=== PATIENT | female | born 1960 | race Caucasian/White ===

== ENCOUNTER 2020-08-11 10:25 | Inpatient (IN) | payer BC ==
[2020-08-05 16:39] LABS: BASOPHILS % (AUTO) 0.7 % (0-1); EOSINOPHILS # (AUTO) 0.4 X10'3 (0-0.9); EOSINOPHILS % (AUTO) 6.9 % (0-6); LYMPHOCYTES # (AUTO) 1.7 X10'3 (1.1-4.8); LYMPHOCYTES % (AUTO) 30.2 % (21-51); MEAN CORPUSCULAR HEMOGLOBIN 30.2 PG (27.0-31.0); MEAN CORPUSCULAR HGB CONC 32.8 g/dL (33.0-36.5); MEAN CORPUSCULAR VOLUME 92.3 FL (78-98); MEAN PLATELET VOLUME 8.4 FL (7.4-10.4); MONOCYTES # (AUTO) 0.6 X10'3 (0-0.9); MONOCYTES % (AUTO) 9.8 % (2-12); NEUTROPHILS % (AUTO) 52.4 % (42-75); PRE OP HEMATOCRIT 43.1 % (35.0-45.0); PRE OP HEMOGLOBIN 14.1 g/dL (12.0-16.0); PRE OP PLATELET COUNT 321 X10'3 (140-440); RED BLOOD COUNT 4.67 X10'6 (4.20-5.60); RED CELL DISTRIBUTION WIDTH 13.9 % (11.5-14.5)
[2020-08-05 16:52] LABS: CHLORIDE 106 MMOL/L (99-107); PRE OP GLUCOSE 91 MG/DL (70-104); PRE OP POTASSIUM 4.2 MMOL/L (3.4-5.1); PRE OP SODIUM 144 MMOL/L (135-145)
[2020-08-05 16:53] LABS: ALBUMIN 4.2 G/DL (3.4-5.0); ALBUMIN/GLOBULIN RATIO 1.4 (1.1-1.5); ALKALINE PHOSPHATASE 89 IU/L (46-116); BLOOD UREA NITROGEN 16 MG/DL (7-18); BUN/CREATININE RATIO 22.9 (6.6-38.0); PRE OP ALT 32 U/L (30-65); PRE OP ANION GAP 9 (8-16); PRE OP AST 23 U/L (10-37); PRE OP BILIRUB, TOTAL 0.5 MG/DL (0.0-1.0); TOTAL CARBON DIOXIDE 29.4 MMOL/L (24-32); TOTAL PROTEIN 7.1 G/DL (6.4-8.2); eGFR 86 ML/MIN
[~2020-08-11] VITALS: Ht 149.9 cm; Wt 86.2 kg
[2020-08-11] VITALS (15 sets, daily range): BP systolic 124–156; BP diastolic 54–88
[~2020-08-11 10:25] MED LIST: MULT-1085 PO; NAPR-996 PO; cefazolin/dext.iso 2gm/100ml IV ONE; famotidine 20mg tablet PO ONE; ringers solution, lacted 1,000 ML IV SCH; tranexamic acid 1gm/0.7% sal. 100 ML IV ONE; vancomycin 1,500 MG in NS 300ml IV soln IV ONE
[2020-08-11] MEDS ORDERED: ACET-75 PO (10:59)
[2020-08-11] MEDS ORDERED: proCHLORperazine 10 MG/2 ml inj IV PRN (12:55)
[2020-08-11] MEDS ORDERED: morphine 4 MG/ML inj SYRINge IV PRN (12:55)
[2020-08-11] MEDS ORDERED: ondansetron/PF 4mg/2ml inj IV PRN ×2 (12:55→18:55)
[2020-08-11] MEDS ORDERED: morphine 2 MG/ML inj. syringe IV PRN (12:55)
[2020-08-11] MEDS ORDERED: ringers solution, lacted 1,000 ML IV SCH (12:55)
[2020-08-11] MEDS ORDERED: meperidine/PF 25mg/ml syringe IV PRN ×3 (12:55)
[2020-08-11] MEDS ORDERED: ketorolac trometh. 30mg/ml inj. ONE (13:47)
[2020-08-11] MEDS ORDERED: ROPIVAcaine 0.5% (5mg/ml) 30ml vial ONE ×2 (13:48→15:49)
[2020-08-11] MEDS ORDERED: MIDAZolam 1mg/ml 10ml vial ONE (15:47)
[2020-08-11] MEDS ORDERED: fentaNYL/PF 50MCG/1 ML 2ML syringe ONE (15:47)
[2020-08-11] MEDS ORDERED: propofol inj 20 ML IV ONE (16:11)
[2020-08-11] MEDS ORDERED: mineral oil 10ml sterile, topical TP ONE (16:43)
[2020-08-11] MEDS ORDERED: ROPIVAcaine 0.2%/PF PUMP/bolus 545 ML ADDCANAL SCH (17:50)
[2020-08-11] MEDS ORDERED: ROPIVAcaine 0.2% (10 MG/5 ML) BOLUS INJECTION ADDCANAL PRN (17:50)
--- NOTE | 2020-08-11 18:32 | NUR ---
Received from OR via , accompanied by Anesthesiologist DR GLEZ and report given by Anesthesiolgist.AWAKE AND BHAVANA PAIN. VITALS STABLE. DRESSING DI. SENSATION AT THE FEET. CLEMENTS WITH CLEAR URINE.
[2020-08-11] MEDS ORDERED: bisacodyl 10mg suppository rectal RC PRN (18:55)
[2020-08-11] MEDS ORDERED: acetaminophen 325mg tablet PO PRN (18:55)
[2020-08-11] MEDS ORDERED: oxyCODONE IR 5mg (immed. release) tablet PO PRN (18:55)
[2020-08-11] MEDS ORDERED: diphenhydrAMINE 25mg capsule PO PRN ×2 (18:55)
[2020-08-11] MEDS ORDERED: magnesium hydroxide 30ml (MOM) UD suspension PO PRN (18:55)
--- NOTE | 2020-08-11 19:32 | NUR ---
Report called to receiving nurse. Transferred via BED Belongings . Special Issues communicated to receiving nurse. AWAKE AND ORIENTED. VITALS STABLE. DRESSING DI. BHAVANA PAIN. TO ORTHO RM 4010B AT THIS TIME.
[2020-08-11] MEDS ORDERED: vancomycin/NS 1 GM ADD-VANTAGE 250 ML IV SCH (20:00)
[2020-08-11] MEDS: potassium cl 20mEq in 1/2 NS 1,000 ML IV SCH (20:42)
[2020-08-11] MEDS: sennosides 8.6mg tablet PO SCH (20:42)
[2020-08-11] MEDS: acetaminophen 325mg tablet PO SCH (20:43)
[2020-08-11] MEDS: oxyCODONE IR 5mg (immed. release) tablet PO PRN (21:31)
[2020-08-11] MEDS: HYDROmorphone inj. 0.5 MG/0.5 ML DISP.SYRIN IV PRN (23:48)
[2020-08-12] VITALS (7 sets, daily range): BP systolic 109–200; BP diastolic 71–101
[2020-08-12] MEDS: acetaminophen 325mg tablet PO SCH ×4 (01:46→20:43)
[2020-08-12] MEDS: ceFAZolin/D5W- 1GM premix 50 ML IV SCH ×2 (01:46→07:20)
[2020-08-12] MEDS: oxyCODONE IR 5mg (immed. release) tablet PO PRN ×4 (01:46→18:38)
[2020-08-12] MEDS: potassium cl 20mEq in 1/2 NS 1,000 ML IV SCH ×3 (02:55→20:44)
[2020-08-12] MEDS: HYDROmorphone inj. 0.5 MG/0.5 ML DISP.SYRIN IV PRN (04:21)
--- NOTE | 2020-08-12 06:09 | NUR ---
Patient in room ORTHO 4010. I have received report from Perri REED and had the opportunity to ask questions and assume patient care.
--- NOTE | 2020-08-12 07:05 | NUR ---
Patient in room ORTHO 4010. I have received report from Jay REED and had the opportunity to ask questions and assume patient care.
[2020-08-12 07:13] LABS: BASOPHILS % (AUTO) 0.2 % (0-1); EOSINOPHILS % (AUTO) 0.1 % (0-6); HEMOGLOBIN 12.2 g/dl (12.0-16.0); LYMPHOCYTES # (AUTO) 0.9 X10'3 (1.1-4.8); MEAN CORPUSCULAR HEMOGLOBIN 30.2 PG (27.0-31.0); MEAN CORPUSCULAR HGB CONC 32.9 g/dL (33.0-36.5); MEAN CORPUSCULAR VOLUME 91.6 FL (78-98); MEAN PLATELET VOLUME 8.8 FL (7.4-10.4); MONOCYTES # (AUTO) 0.8 X10'3 (0-0.9); MONOCYTES % (AUTO) 7.9 % (2-12); NEUTROPHILS # (AUTO) 8.6 X10'3 (1.8-7.7); NEUTROPHILS % (AUTO) 82.8 % (42-75); PLATELET COUNT 304 X10'3 (140-440); RED BLOOD COUNT 4.04 X10'6 (4.20-5.60); RED CELL DISTRIBUTION WIDTH 13.7 % (11.5-14.5); WHITE BLOOD COUNT 10.4 X10'3 (4.5-11.0)
[2020-08-12] MEDS: HYDROmorphone 1 mg/ml syringe IV PRN ×2 (07:18→12:30)
[2020-08-12] MEDS: aspirin 325mg tablet PO SCH (07:52)
[2020-08-12 08:22] LABS: ANION GAP 10 (8-16); CHLORIDE 108 MMOL/L (99-107); POTASSIUM 4.4 MMOL/L (3.5-5.1); SODIUM 143 MMOL/L (135-145); TOTAL CARBON DIOXIDE 24.8 MMOL/L (24-32)
[2020-08-12] MEDS ORDERED: HYDROcodone/acetaminophen 10/325mg tab PO ONE (10:05)
--- NOTE | 2020-08-12 11:41 | NUR ---
Joint surgery consult: Pt s/p L knee surgery this admit. Pt seen by HIREN for written/verbal high protein ed w/ RD contact information provided. Pt reports constipation at this time however declines foods to help alleviate r/t current pain level. RN aware of pain level and addressing at this time. Addendum: 08/12/20 at [address] Amended: Links added.
[2020-08-12] MEDS: docusate sod 100mg capsule PO SCH ×2 (12:30→20:00)
[2020-08-12] MEDS ORDERED: ketorolac trometh. 30mg/ml inj. IM SCH (14:00)
[2020-08-12] MEDS: gabapentin 300mg capsule PO SCH ×2 (14:32→20:43)
[2020-08-12] MEDS: ketorolac trometh. 30mg/ml inj. IV SCH ×2 (14:56→20:43)
--- NOTE | 2020-08-12 17:31 | NUR ---
Pt primary complaint this shift is uncontrolled pain. Pt has has bouts of htn this shift 200/100 most likely due to uncontrolled pain. Nursing staff and pt spoke with Ortho PA, new medications Gabapentin and Ketoralac were ordered which according to patient were very effective. Pt has voided multiple times this shift and states her last BM was yesterday morning. Pt was given a colace per pts request. Will continue to monitor pt.
--- NOTE | 2020-08-12 18:13 | NUR ---
Problems reprioritized. Patient report given, questions answered & plan of care reviewed with Perri REED.
[2020-08-12] MEDS ORDERED: ketorolac trometh. 30mg/ml inj. IV SCH ×2 (20:00)
[2020-08-12] MEDS: sennosides 8.6mg tablet PO SCH (20:42)
[2020-08-13] MEDS: ketorolac trometh. 30mg/ml inj. IV SCH ×4 (01:55→13:57)
[2020-08-13] MEDS: acetaminophen 325mg tablet PO SCH ×3 (01:55→13:06)
[2020-08-13] MEDS: potassium cl 20mEq in 1/2 NS 1,000 ML IV SCH (02:55)
[2020-08-13 06:00] VITALS: BP 111/66
[2020-08-13] MEDS ORDERED: oxyCODONE/APAP 10/325mg tablet PO PRN (06:05)
--- NOTE | 2020-08-13 06:31 | NUR ---
Patient in room ORTHO 4010. I have received report from Perri REED and had the opportunity to ask questions and assume patient care.
[2020-08-13] MEDS: docusate sod 100mg capsule PO SCH (07:05)
[2020-08-13] MEDS: gabapentin 300mg capsule PO SCH ×2 (07:05→13:06)
[2020-08-13 07:28] LABS: BASOPHILS % (AUTO) 0.5 % (0-1); EOSINOPHILS # (AUTO) 0.3 X10'3 (0-0.9); EOSINOPHILS % (AUTO) 4.7 % (0-6); HEMOGLOBIN 10.6 g/dl (12.0-16.0); LYMPHOCYTES # (AUTO) 1.2 X10'3 (1.1-4.8); LYMPHOCYTES % (AUTO) 21.8 % (21-51); MEAN CORPUSCULAR HEMOGLOBIN 31.3 PG (27.0-31.0); MEAN CORPUSCULAR HGB CONC 34.3 g/dL (33.0-36.5); MEAN CORPUSCULAR VOLUME 91.4 FL (78-98); MEAN PLATELET VOLUME 8.6 FL (7.4-10.4); MONOCYTES # (AUTO) 0.8 X10'3 (0-0.9); MONOCYTES % (AUTO) 14.4 % (2-12); NEUTROPHILS # (AUTO) 3.2 X10'3 (1.8-7.7); NEUTROPHILS % (AUTO) 58.6 % (42-75); PLATELET COUNT 232 X10'3 (140-440); RED BLOOD COUNT 3.39 X10'6 (4.20-5.60); RED CELL DISTRIBUTION WIDTH 14.1 % (11.5-14.5); WHITE BLOOD COUNT 5.5 X10'3 (4.5-11.0)
--- NOTE | 2020-08-13 07:49 | NUR ---
Pt states after percocet she is a tolerable 6/10 pain. will continue to monitor pt
[2020-08-13] MEDS: aspirin 325mg tablet PO SCH (08:06)
[2020-08-13] MEDS: oxyCODONE IR 5mg (immed. release) tablet PO PRN (09:48)
[2020-08-13 09:59] VITALS: BP 102/65
--- NOTE | 2020-08-13 11:27 | NUR ---
pt currently up in the chair, states her pain is tolerable and she thinks she is ready to go home. Will talk with Ortho PA when available to discuss possible discharge.
[2020-08-13] MEDS ORDERED: gabapentin capsule PO (12:23)
[2020-08-13] MEDS ORDERED: OXYC1TAB17 PO (12:23)
[2020-08-13] MEDS ORDERED: GABA300C PO (12:25)
--- NOTE | 2020-08-13 13:15 | NUR ---
Ketorolac removed from [facility]ell for administration. Pts Iv infiltrated so medication was wasted. Call Ortho PA and she stated she will administer medication IV. Removed another ketorolac vial from [facility].
[2020-08-13] MEDS ORDERED: ketorolac trometh. 30mg/ml inj. IM ONE (13:50)
--- NOTE | 2020-08-13 16:39 | NUR ---
Pt discharged from [facility] at 1639. Iv removed no complications. Belongings sent with patient. All questions reviewed/answered. Pt discharged in stable condition.
[2020-08-13] MEDS ORDERED: acetaminophen 325mg tablet PO PRN (18:55)
== END 2020-08-13 15:35 | disposition home or self-care (01) | DRG 470 ==
LOC: PAS 10:25 → ORTHO 4S 18:54 → UNDOADMIN 21:56 → ORTHO 4S 21:56
PROVIDERS: ADMIT Orthopaedic Surgery; ATTEND Orthopaedic Surgery
PROC: 8E0WXBF Computer Assisted Procedure of Trunk Region, With Fluoroscopy (ICD-10-PCS; 2020-08-11)
PROC: 8E0WXCZ Robotic Assisted Procedure of Trunk Region (ICD-10-PCS; 2020-08-11)
PROC: 3E0T3BZ Introduction of Anesthetic Agent into Peripheral Nerves and Plexi, Percutaneous Approach (ICD-10-PCS; 2020-08-11)
PROC: 0SRD0J9 Replacement of Left Knee Joint with Synthetic Substitute, Cemented, Open Approach (ICD-10-PCS; principal; 2020-08-11 15:45)
DX: M17.12 Unilateral primary osteoarthritis, left knee (principal)
CPT/HCPCS: Z7506; Z7508; 36415; 80051; 80053; 82948; 85025; 87081; 97110; 97116; 97161; 97530; A4215; A7000; C1713; C1758; C1776; G0378; J0690; J1170; J1885; J2250; J2704; J2795; J3010; J3370; J3480; J7040; J7120; Q0163